=== PATIENT | female | born 1985 ===

== ENCOUNTER 2022-09-02 07:45 | Inpatient (IN) | payer OTHER ==
[~2022-09-02] VITALS: Ht 157.5 cm; Wt 3.6 kg
[2022-09-02] MEDS ORDERED: FOLIC A PO (09:58)
[2022-09-02] MEDS ORDERED: IRON PO (09:58)
[2022-09-02] MEDS ORDERED: PRENA PO (09:58)
[2022-09-02] MEDS ORDERED: CHILDREN'S ASPI81 MG PO (09:59)
[2022-09-02] MEDS ORDERED: VITAMIN C PO (09:59)
[2022-09-05] MEDS ORDERED: ST. JOSEPH ASPI81 M2 (08:04)
[2022-09-05] MEDS ORDERED: FOLIC ACID0.8 M1 (08:04)
[2022-09-05] MEDS ORDERED: PROFERRIN-FORT1 EACH (08:04)
[2022-09-05] MEDS ORDERED: PRENATAL + DHA1 EAC1 (08:05)
[2022-09-05] MEDS ORDERED: ATABEX OB TABL1 EACH (08:05)
== END 2022-09-07 13:56 | disposition home or self-care (01) | DRG 788 ==
LOC: O/R 09-05 04:50 → OB/GYN 09-05 07:45
PROVIDERS: ADMIT Obstetrics & Gynecology; ATTEND Obstetrics & Gynecology
PROC: 4A1HXCZ Monitoring of Products of Conception, Cardiac Rate, External Approach (ICD-10-PCS; 2022-09-05)
PROC: 10D00Z1 Extraction of Products of Conception, Low, Open Approach (ICD-10-PCS; principal; 2022-09-05 13:30)
DX: O32.1XX0 Maternal care for breech presentation, not applicable or unspecified (principal); Z3A.39 39 weeks gestation of pregnancy; Z37.0 Single live birth; Z20.822 Contact with and (suspected) exposure to COVID-19